=== PATIENT | male | born 1985 | race Caucasian/White ===

== ENCOUNTER 2021-10-20 13:00 | Outpatient (RCR) | payer OTHER, SELFPAY ==
[2021-10-20 13:29] LABS: Basophils Percent Auto 1.1 % (0.0-3.0); Eosinophils Percent Auto 0.7 % (0.0-7.0); Hematocrit 43.5 % (37.0-53.0); Hemoglobin* 15.2 gm/dL (13.5-17.5); Mean Corpuscular HGB Conc 35 gm/dL (32-36); Mean Corpuscular Hemoglobin 31 pg (26-34); Mean Corpuscular Volume 88 fL (80-100); Monocytes Percent Auto 5.6 % (0.0-11.0); Neutrophils Percent Auto 56.6 % (42.0-72.0); Platelet Count* 72 K/uL (140-440); RDW Coefficient of Variation % 12.2 % (11.5-15.5); Red Blood Count 4.92 m/uL (4.30-5.90); White Blood Count* 4.44 K/uL (4.50-11.00)
[2021-10-20 13:36] LABS: Slide Review Reflex No
== END 2022-04-18 23:59 | disposition home or self-care (01) ==
LOC: CCIC 13:00
PROVIDERS: PCP Family Medicine; Visit Provider Internal Medicine Hematology & Oncology
DX: D69.3 Immune thrombocytopenic purpura (principal); Z80.42 Family history of malignant neoplasm of prostate; F32.A Depression, unspecified
CPT/HCPCS: 36415; 85025; 99212; 99213

== ENCOUNTER 2022-02-08 13:19 | Outpatient (CLI) | payer OTHER, SELFPAY ==
[2022-02-08 11:15] LABS: Cholesterol* 198 mg/dL (90-199); Glucose* 91 mg/dL (60-115); HDL Cholesterol* 49 mg/dL (>=40); LDL Cholesterol Calculated 124 mg/dL (<100); Triglycerides* 127 mg/dL (40-149)
[2022-02-12 13:04] LABS: PSA Screen* 1.56 ng/mL (0.10-4.00)
== END 2022-02-08 13:20 | disposition home or self-care (01) ==
PROVIDERS: PCP Family Medicine; Visit Provider Family Medicine
DX: Z00.00 Encounter for general adult medical examination without abnormal findings (principal); R53.83 Other fatigue; E66.3 Overweight; Z13.6 Encounter for screening for cardiovascular disorders; Z12.5 Encounter for screening for malignant neoplasm of prostate; Z13.1 Encounter for screening for diabetes mellitus
CPT/HCPCS: 80061; 82947; 84153; 84443

== ENCOUNTER 2023-05-03 12:15 | Outpatient (RCR) | payer OTHER, SELFPAY ==
[2023-02-01 08:48] LABS: Basophils Percent Auto 0.9 % (0.0-3.0); Eosinophils Percent Auto 1.1 % (0.0-7.0); Hemoglobin* 15.2 gm/dL (13.5-17.5); Lymphocytes Percent Auto 41.3 % (20-44); Mean Corpuscular HGB Conc 35 gm/dL (32-36); Mean Corpuscular Hemoglobin 31 pg (26-34); Mean Corpuscular Volume 89 fL (80-100); Monocytes Percent Auto 6.3 % (0.0-11.0); Neutrophils Percent Auto 50.4 % (42.0-72.0); Platelet Count* 66 K/uL (140-440); RDW Coefficient of Variation % 12.2 % (11.5-15.5); Red Blood Count 4.93 m/uL (4.30-5.90); White Blood Count* 4.41 K/uL (4.50-11.00)
[2023-02-01 09:03] LABS: Albumin* 4.6 g/dL (3.3-5.0)
[2023-02-01 09:04] LABS: Chloride* 107 mmol/L (96-114); Potassium* 4.1 mmol/L (3.6-5.1); Sodium* 142 mmol/L (135-149)
[2023-02-01 09:06] LABS: Cholesterol* 181 mg/dL (90-199); Creatinine* 0.7 mg/dL (0.5-1.5); Estimated Glomerular Filt Rate 120 ml/min
[2023-02-01 09:07] LABS: Alanine Aminotransferase* 25 U/L (4-50); Alkaline Phosphatase* 56 U/L (40-150); Anion Gap 9 mEq/L (7-15); Aspartate Amino Transferase* 24 U/L (12-35); Bilirubin Total* 1.2 mg/dL (0.1-1.5); Blood Urea Nitrogen* 13 mg/dL (5-24); Calcium* 9.1 mg/dL (8.4-10.6); Carbon Dioxide* 26 mmol/L (20-32); Glucose* 100 mg/dL (60-115); Slide Review Reflex No; Total Protein* 7.5 g/dL (6.0-8.3); Triglycerides* 130 mg/dL (40-149)
[2023-02-01 09:08] LABS: HDL Cholesterol* 44 mg/dL (>=40); LDL Cholesterol Calculated 111 mg/dL (<100)
[2023-02-01 09:37] LABS: PSA Screen* 1.74 ng/mL (0.10-4.00)
[2023-05-03 13:00] LABS: Basophils Absolute Auto 0.05 K/uL (0.00-0.30); Eosinophils Absolute Auto 0.03 K/uL (0.00-0.50); Eosinophils Percent Auto 0.6 % (0.0-7.0); Hematocrit 43.8 % (37.0-53.0); Hemoglobin* 15.4 gm/dL (13.5-17.5); Immature Granulocytes Abs Auto 0.01 K/uL (0.00-0.30); Immature Granulocytes Pct Auto 0.2 %; Lymphocytes Absolute Auto 1.68 K/uL (0.90-2.90); Lymphocytes Percent Auto 31.9 % (20-44); Mean Corpuscular HGB Conc 35 gm/dL (32-36); Mean Corpuscular Hemoglobin 31 pg (26-34); Mean Corpuscular Volume 88 fL (80-100); Monocytes Percent Auto 6.3 % (0.0-11.0); Neutrophils Absolute Auto 3.16 K/uL (1.7-7.0); Platelet Count* 71 K/uL (140-440); RDW Coefficient of Variation % 12.2 % (11.5-15.5); Red Blood Count 4.98 m/uL (4.30-5.90); White Blood Count* 5.26 K/uL (4.50-11.00)
[2023-05-03 13:01] LABS: Slide Review Reflex No
== END 2023-07-31 23:59 | disposition home or self-care (01) ==
LOC: CCIC 12:15
PROVIDERS: Clinical Nurse Specialist; PCP Family Medicine; Referring Provider Family Medicine; Visit Provider Internal Medicine Hematology & Oncology
DX: D69.3 Immune thrombocytopenic purpura (principal); Z80.42 Family history of malignant neoplasm of prostate; F41.9 Anxiety disorder, unspecified; F32.9 Major depressive disorder, single episode, unspecified
CPT/HCPCS: 36415; 80053; 80061; 84153; 85025; 99212; 99213; 99214; G0463

== ENCOUNTER 2023-12-20 14:10 | Outpatient (RCR) | payer OTHER, SELFPAY ==
[2023-12-20 14:33] LABS: Basophils Absolute Auto 0.04 K/uL (0.00-0.30); Basophils Percent Auto 0.9 % (0.0-3.0); Eosinophils Absolute Auto 0.05 K/uL (0.00-0.50); Eosinophils Percent Auto 1.1 % (0.0-7.0); Hematocrit 42.6 % (37.0-53.0); Hemoglobin* 14.8 gm/dL (13.5-17.5); Immature Granulocytes Abs Auto 0.01 K/uL (0.00-0.30); Immature Granulocytes Pct Auto 0.2 %; Lymphocytes Absolute Auto 1.43 K/uL (0.90-2.90); Lymphocytes Percent Auto 31.2 % (20-44); Mean Corpuscular HGB Conc 35 gm/dL (32-36); Mean Corpuscular Hemoglobin 32 pg (26-34); Mean Corpuscular Volume 91 fL (80-100); Monocytes Percent Auto 6.1 % (0.0-11.0); Neutrophils Absolute Auto 2.78 K/uL (1.7-7.0); Neutrophils Percent Auto 60.5 % (42.0-72.0); Platelet Count* 60 K/uL (140-440); RDW Coefficient of Variation % 12.2 % (11.5-15.5); Red Blood Count 4.67 m/uL (4.30-5.90); White Blood Count* 4.59 K/uL (4.50-11.00)
[2023-12-20 14:36] LABS: Slide Review Reflex No
== END 2024-06-17 23:59 | disposition home or self-care (01) ==
LOC: CCIC 14:10
PROVIDERS: PCP Family Medicine; Referring Provider Family Medicine; Visit Provider Internal Medicine Hematology & Oncology
DX: D69.3 Immune thrombocytopenic purpura (principal); Z80.42 Family history of malignant neoplasm of prostate; F41.9 Anxiety disorder, unspecified; F32.A Depression, unspecified
CPT/HCPCS: 36415; 85025; 99213; 99214; G0463

== ENCOUNTER 2024-05-17 08:02 | Outpatient (CLI) | payer BC, SELFPAY | END 2024-05-17 08:03 | disposition home or self-care (01) | LOC: NFLDREF 05-21 00:50 | PROVIDERS: PCP Family Medicine; Referring Provider Family Medicine; Visit Provider Family Medicine | DX: E78.5 Hyperlipidemia, unspecified (principal); Z80.42 Family history of malignant neoplasm of prostate; Z12.5 Encounter for screening for malignant neoplasm of prostate | CPT/HCPCS: 80053; 80061; G0103 ==

== ENCOUNTER 2024-06-20 13:13 | Outpatient (CLI) | payer BC, SELFPAY ==
--- NOTE | 2024-06-27 08:18 | W.PM.SLEEP ---
Sleep Study Details Details Interpreting Provider: Juany Date of Sleep Study: 06/20/24 Sleep Study Details: STUDY TYPE:? Home unattended ? BMI:? 27.5 ORDERING PROVIDER:Fredis Harrington INDICATION:? Concern for sleep apnea ? SLEEP SUMMARY:? 498 minutes monitored RESPIRATORY SUMMARY:? AHI 25.7 Low oxygen 85 1.3% of study oxygen less than 90% Snoring 97.1% PERIODIC LIMB MOVEMENTS OF SLEEP:? Not recorded CARDIAC:? Range 51-109, mean 69.4 beats per minute IMPRESSION: Moderate obstructive sleep apnea RECOMMENDATION: Treatment options include CPAP, dental appliance and/or airway
== END 2024-06-20 13:14 | disposition home or self-care (01) ==
LOC: SLEEP 13:14
PROVIDERS: PCP Family Medicine; Visit Provider Otolaryngology
DX: G47.33 Obstructive sleep apnea (adult) (pediatric) (principal)
CPT/HCPCS: 95806

== ENCOUNTER 2024-06-20 13:16 | Outpatient (RCR) | payer BC, SELFPAY ==
--- NOTE | 2024-06-19 09:47 | ONC.NURNOTE ---
Left message for patient as he did not show for lab appointment.
[2024-06-20 13:46] LABS: Hematocrit* 44.1 % (37.0-53.0); Hemoglobin* 15.5 gm/dL (13.5-17.5); Immature Granulocytes Abs Auto 0.04 K/uL (0.00-0.30); Immature Granulocytes Pct Auto 0.7 %; Lymphocytes Absolute Auto 1.76 K/uL (0.90-2.90); Mean Corpuscular HGB Conc 35 gm/dL (32-36); Mean Corpuscular Hemoglobin 31 pg (26-34); Mean Corpuscular Volume 89 fL (80-100); RDW Coefficient of Variation % 12.6 % (11.5-15.5); Red Blood Count* 4.98 m/uL (4.30-5.90); White Blood Count* 5.52 K/uL (4.50-11.00)
[2024-06-20 14:05] LABS: Slide Review Reflex No
== END 2024-12-17 23:59 | disposition home or self-care (01) ==
LOC: CCIC 13:16
PROVIDERS: PCP Family Medicine; Referring Provider Family Medicine; Visit Provider Internal Medicine Hematology & Oncology
DX: D69.3 Immune thrombocytopenic purpura (principal); G47.33 Obstructive sleep apnea (adult) (pediatric)
CPT/HCPCS: 36415; 85025